=== PATIENT | male | born 1970 | race Caucasian/White ===

== ENCOUNTER 2024-11-29 15:35 | Outpatient (CLI) | payer BC, SELFPAY ==
--- NOTE | ~2024-11-29 | MR_ITS ---
MRI of the right shoulder Technique: Axial proton-density fat-sat images, coronal proton density fat-sat and T2 fat-sat images, and sagittal T1-weighted and T2 fat-sat images were acquired. Clinical History: Pain Findings: There is mild AC joint degenerative change with subacromial spur present. Coracoclavicular, coracoacromial, and coracohumeral ligaments are probably intact. There is moderate tendinosis of the supraspinatus and infraspinatus tendons. There is low to moderate grade bursal surface partial tear at the midportion of the supraspinatus tendon. No infraspinatus te ndon tear evident. Subscapularis tendon is intact with mild tendinosis. Tendon of the long head of th e biceps is intact. There is probable superior labral tear at the biceps labral anchor. Inferior glenohumeral ligament is thickened and hyperintense. There is minimal glenohumeral joint eff usion. There is mild chondromalacia of the glenohumeral joint. There is minimal fluid in subacromial/ subdeltoid bursa. No muscle atrophy or edema. Impression: Findings suggestive of adhesive capsulitis. Moderate rotator cuff tendinosis with low to moderate grade bursal surface partial tear at the midpor tion of the supraspinatus tendon. Superior labral tear. Mild AC joint degenerative change. Minimal subacromial/subdeltoid bursitis. Reviewed, dictated and finalized at [facility]. Impression: Findings suggestive of adhesive capsulitis. Moderate rotator cuff tendinosis with low to moderate grade bursal surface part ial tear at the midportion of the supraspinatus tendon. Superior labral tear. Mild AC joint degenerative change. Minimal subacromial/subdeltoid bursitis.
== END 2024-11-29 15:36 | disposition home or self-care (01) ==
LOC: GOSHIMG 15:36
PROVIDERS: PCP Physician Assistant; Visit Provider Physician Assistant
DX: S43.431A Superior glenoid labrum lesion of right shoulder, initial encounter (principal); M75.111 Incomplete rotator cuff tear or rupture of right shoulder, not specified as traumatic; M19.011 Primary osteoarthritis, right shoulder; M75.31 Calcific tendinitis of right shoulder; M75.51 Bursitis of right shoulder; X58.XXXA Exposure to other specified factors, initial encounter
CPT/HCPCS: 73221